=== PATIENT | female | born 1995 | race African-American/Black ===

== ENCOUNTER 2025-05-21 16:25 | Emergency (ER) | payer OTHER, MEDICAID ==
[~2025-05-21] VITALS: Ht 167.6 cm; Wt 73.0 kg
[2025-05-21 16:27] VITALS: TEMP 98.2; O2SAT 98
[2025-05-21] MEDS: KETOROLAC 15MG/ML VIAL IM ONE (17:54)
[2025-05-21] MEDS: ACETAMINOPHEN 325MG TABLET PO ONE (18:02)
[2025-05-21] MEDS: LIDOCAINE 5% PATCH TOP SCH (18:02)
[2025-05-21] MEDS ORDERED: IBUP-1455 MT (18:14)
[2025-05-21 18:17] VITALS: BP 128/77; PULSE 86; RESP 16
== END 2025-05-21 19:47 | disposition home or self-care (01) ==
LOC: ER 16:25
DX: S13.4XXA Sprain of ligaments of cervical spine, initial encounter (principal); S39.012A Strain of muscle, fascia and tendon of lower back, initial encounter; V43.62XA Car passenger injured in collision with other type car in traffic accident, initial encounter; Y92.410 Unspecified street and highway as the place of occurrence of the external cause; Y93.89 Activity, other specified; Y99.8 Other external cause status
CPT/HCPCS: 81025; 96372; 99283; J1885; Z7610 ×2